=== PATIENT | female | born 1975 | race Caucasian/White ===

== ENCOUNTER 2019-06-27 15:03 | Emergency (ER) | payer MEDICAID, SELFPAY | END 2019-06-27 17:58 | disposition admitted as inpatient to this hospital (09) | LOC: ER 07-07 06:51 | PROVIDERS: Emergency Provider Emergency Medicine | DX: R45.851 Suicidal ideations (principal); F33.2 Major depressive disorder, recurrent severe without psychotic features; F17.210 Nicotine dependence, cigarettes, uncomplicated | CPT/HCPCS: 12345; 36415; 80053; 80306; 80307; 81025; 85025; 99284; 99285 ==

== ENCOUNTER 2019-06-27 15:03 | Inpatient (IN) | payer MEDICAID, SELFPAY ==
[2019-06-27 15:04] VITALS: BP 150/90; PULSE 77; RESP 16; TEMP 36.8; O2SAT 99; BMI 36.6
--- NOTE | 2019-06-27 15:16 | ED_ITS ---
HPI - Psych General: Chief Complaint: Psychiatric Symptoms Stated Complaint: SI/multiple c/o Time Seen by Provider: 06/27/19 15:16 History of Present Illness: HPI Narrative: Pt states she feels like killing herself over the past 2-3 days. She got into an argument today with someone and it made it much worse. She thought about jumping in front of a car or jumping off of a bridge. She was brought in by ems and they did an affidavit. She states she is not on any meds, was last in psych in March and they didnt put her on any meds per pt. complaint: suicidal ideation Onset (ago): day(s) (3) Duration: constant and getting worse History of same: Yes Relieving factors: none Exacerbating factors: other (argument today) Context: not taking psychiatric medications Associated psychiatric symptoms: depression and suicidal ideation Associated symptoms: Reports no associated symptoms, depression and suicidal ideation Treatments prior to arrival: none If self harm: admits thoughts of self harm and has plan Review of Systems General: Reports: 10 or more systems reviewed and unremarkable except in HPI and below Const: Denies: fever, chills, body aches, change in appetite, fatigue or diaphoresis ENMT: Denies: throat pain or dental pain Card: Reports: palpitations; Denies: chest pain, irregular heart rhythm, edema, syncope, pre-syncope, shortness of breath on exertion or shortness of breath when lying down Resp: Denies: shortness of breath or wheezing GI: Denies: abdominal pain, nausea, vomiting or diarrhea : Denies: difficulty urinating Skin/Breast: Denies: rash Neuro: Reports: headache; Denies: weakness in extremities, difficulty walking, confusion or behavioral changes Psych: Reports: anxiety, depression, mood swings, panic attacks and suicidal ideation PFS ED PFSH: Medical History (Updated 06/27/19 @ 16:59 by HARDIK Car) Anxiety and depression Bipolar 1 disorder Social History Smoking and tobacco status: current every day smoker Physical Exam Const: COMMON NORMALS: no apparent distress, oriented x3 and healthy appearing EXAM LIMITATIONS: no altered mental status GENERAL APPEARANCE: cooperative, comfortable, well kempt and well developed; not in distress and not lethargic ORIENTATION/CONSCIOUSNESS: Yes awake, Yes oriented to person and Yes oriented to place; not lethargic Neck/C-Spine: COMMON NORMALS: full ROM, supple and no meningeal signs Resp: COMMON NORMALS: normal respiratory effort, no use of accessory muscles and clear to auscultation bilaterally EFFORT & INSPECTION: Yes able to speak in complete sentences, Yes symmetric chest movement and No respiratory distress AUSCULTATION: clear to auscultation bilaterally Cardio: COMMON NORMALS: regular rate, regular rhythm and no murmurs RATE: regular rate RHYTHM: regular rhythm GI: COMMON NORMALS: normal to inspection, nondistended, normoactive bowel sounds, soft to palpation and non-tender INSPECTION: Yes normal to inspection PALPATION: Yes soft : COMMON NORMALS: Yes no CVA tenderness BLADDER/KIDNEY EXAM: Yes no CVA tenderness Back/Pelvis: COMMON NORMALS: no CVA tenderness Extremity: COMMON NORMALS: normal to inspection, full ROM and normal capillary refill Neuro: COMMON NORMALS: oriented x3 SENSORIUM/ORIENTATION: Yes oriented to person, Yes oriented to place and No lethargic MENINGEAL SIGNS: Yes no meningeal signs Psych: APPEARANCE: Yes well kempt MDM - Psych MDM Narrative: Medical decision making narrative: pt is acutey suicidal and depressed, Dr Gordillo states he will admit, Lab Data: Attestation: I reviewed the patient's lab results. Labs: Lab Results 06/27/19 06/27/19 06/27/19 Range/Units 16:08 16:08 16:10 WBC 5.0 (4.0-10.0) 10^3/ uL RBC 4.26 (4.1-5.3) 10^6/u L Hgb 12.1 (11.5-15.3) g/dL Hct 36.8 L (37.0-47.0) % MCV 86.4 (81-99) fL MCH 28.4 (28.0-34.0) pg MCHC 32.9 (30.0-36.0) g/dL RDW 13.5 (12.1-15.1) % Plt Count 210 (130-400) 10^3/c mm MPV 10.8 H (7.4-10.4) fL Neut % (Auto) 54.5 % Lymph % (Auto) 28.0 % Prentiss % (Auto) 15.1 % Eos % (Auto) 1.0 % Baso % (Auto) 1.2 % Neut # (Auto) 2.7 (1.8-7.7) 10^3/u L Lymph # (Auto) 1.4 (0.8-4.8) 10^3/u L Prentiss # (Auto) 0.8 (0.2-0.9) 10^3/u L Eos # (Auto) 0.1 (0.0-0.8) 10^3/u L Baso # (Auto) 0.1 (0.0-0.1) 10^3/u L Nucleated RBC % (a uto) 0 % Nucleated RBCs # 0.0 /100WBC Sodium 137 (136-145) mmol/L Potassium 4.3 (3.5-5.1) mmol/L Chloride 102 (98-107) mmol/L Carbon Dioxide 26 (22-29) mmol/L Anion Gap 13.3 (5-19) BUN 14 (6-20) mg/dL Creatinine 0.8 (0.5-0.9) mg/dL GFR Calculation 77.6 L (90-130) mL/min Glucose 95 (65-115) mg/dL Calculated Osmolal ity 280 L (285-295) mOsm/k g Calcium 9.2 (8.5-10.5) mg/dL Total Bilirubin 0.2 (0.15-1.2) mg/dL AST 16 (0-32) U/L ALT 7 (0-33) U/L Alkaline Phosphata se 78 (35-105) IU/L Total Protein 7.7 (6.6-8.7) g/dL Albumin 4.0 (3.5-5.2) g/dL Globulin 3.7 (1.3-4.6) g/dL HCG, Qual Negative (Negative) Salicylates 1.5 L (3-10) mg/dL Urine Opiates Scre en (Negative) ng/mL Acetaminophen < 5.0 L (10-30) ug/mL Ur Barbiturates Sc reen (Negative) ng/mL Ur Phencyclidine S crn (Negative) ng/mL Ur Amphetamines Sc reen (Negative) ng/mL U Benzodiazepines Scrn (Negative) ng/mL Urine Cocaine Scre en (Negative) ng/mL U Marijuana (THC) Screen (Negative) ng/mL Ethyl Alcohol < 10 (0-10) mg/dL 06/27/19 Range/Units 16:10 WBC (4.0-10.0) 10^3/ uL RBC (4.1-5.3) 10^6/u L Hgb (11.5-15.3) g/dL Hct (37.0-47.0) % MCV (81-99) fL MCH (28.0-34.0) pg MCHC (30.0-36.0) g/dL RDW (12.1-15.1) % Plt Count (130-400) 10^3/c mm MPV (7.4-10.4) fL Neut % (Auto) % Lymph % (Auto) % Prentiss % (Auto) % Eos % (Auto) % Baso % (Auto) % Neut # (Auto) (1.8-7.7) 10^3/u L Lymph # (Auto) (0.8-4.8) 10^3/u L Prentiss # (Auto) (0.2-0.9) 10^3/u L Eos # (Auto) (0.0-0.8) 10^3/u L Baso # (Auto) (0.0-0.1) 10^3/u L Nucleated RBC % (a uto) % Nucleated RBCs # /100WBC Sodium (136-145) mmol/L Potassium (3.5-5.1) mmol/L Chloride (98-107) mmol/L Carbon Dioxide (22-29) mmol/L Anion Gap (5-19) BUN (6-20) mg/dL Creatinine (0.5-0.9) mg/dL GFR Calculation (90-130) mL/min Glucose (65-115) mg/dL Calculated Osmolal ity (285-295) mOsm/k g Calcium (8.5-10.5) mg/dL Total Bilirubin (0.15-1.2) mg/dL AST (0-32) U/L ALT (0-33) U/L Alkaline Phosphata se (35-105) IU/L Total Protein (6.6-8.7) g/dL Albumin (3.5-5.2) g/dL Globulin (1.3-4.6) g/dL HCG, Qual (Negative) Salicylates (3-10) mg/dL Urine Opiates Scre en Negative (Negative) ng/mL Acetaminophen (10-30) ug/mL Ur Barbiturates Sc reen Negative (Negative) ng/mL Ur Phencyclidine S crn Negative (Negative) ng/mL Ur Amphetamines Sc reen Negative (Negative) ng/mL U Benzodiazepines Scrn Negative (Negative) ng/mL Urine Cocaine Scre en Negative (Negative) ng/mL U Marijuana (THC) Screen Positive H (Negative) ng/mL Ethyl Alcohol (0-10) mg/dL Discharge Plan Discharge Patient Disposition: Admitted As Inpatient Admit Provider: Hudson Rosales Clinical Impression: Suicidal ideation Depression Qualifiers: Depression Type: major depressive disorder Major depression recurrence: recurrent Active/Remission status: currently active Major depression episode severity: severe Psychotic features: without psychotic features Qualified Code(s): F33.2 - Major depressive disorder, recurrent severe without psychotic features Condition: Stable Coding Level of Care Code ED Contracting Executive for Irish Fwd Exam Detailed
[2019-06-27 16:17] LABS: Basophils # 0.1 10^3/uL (0.0-0.1); Basophils % 1.2 %; Eosinophils # 0.1 10^3/uL (0.0-0.8); Hematocrit 36.8 % (37.0-47.0); Hemoglobin 12.1 g/dL (11.5-15.3); Lymphocytes # 1.4 10^3/uL (0.8-4.8); Mean Corpuscular HGB Conc 32.9 g/dL (30.0-36.0); Mean Corpuscular Hemoglobin 28.4 pg (28.0-34.0); Mean Corpuscular Volume 86.4 fL (81-99); Mean Platelet Volume 10.8 fL (7.4-10.4); Monocytes # 0.8 10^3/uL (0.2-0.9); Monocytes % 15.1 %; Neutrophils # 2.7 10^3/uL (1.8-7.7); Neutrophils % 54.5 %; Nucleated Red Blood Cells % 0 %; Platelet Count 210 10^3/cmm (130-400); Red Blood Count 4.26 10^6/uL (4.1-5.3); Red Cell Distribution Width 13.5 % (12.1-15.1)
[2019-06-27 16:30] LABS: Amphetamines Screen Urine Negative (Negative); Barbiturates Screen Urine Negative (Negative); Benzodiazepines Screen Urine Negative (Negative); Cocaine Screen Urine Negative (Negative); Opiate Screen Urine Negative (Negative); PCP Screen Urine Negative (Negative); THC Screen Urine Positive (Negative)
[2019-06-27 16:32] LABS: HCG Qualitative Urine. Negative (Negative)
[2019-06-27 16:32] LABS: Alanine Aminotransferase 7 U/L (0-33); Alkaline Phosphatase 78 IU/L (35-105); Anion Gap 13.3 (5-19); Aspartate Amino Transferase 16 U/L (0-32); Blood Urea Nitrogen 14 mg/dL (6-20); Calcium 9.2 mg/dL (8.5-10.5); Carbon Dioxide 26 mmol/L (22-29); Chloride 102 mmol/L (98-107); Globulin 3.7 g/dL (1.3-4.6); Glomerular Filtration Rate 77.6 mL/min (90-130); Glucose 95 mg/dL (65-115); Osmolality Calculated 280 mOsm/kg (285-295); Potassium 4.3 mmol/L (3.5-5.1); Salicylate 1.5 mg/dL (3-10); Sodium 137 mmol/L (136-145); Total Bilirubin 0.2 mg/dL (0.15-1.2); Total Protein 7.7 g/dL (6.6-8.7)
[2019-06-27 16:42] LABS: Acetaminophen < 5.0 ug/mL (10-30); Alcohol Level < 10 mg/dL (0-10)
[2019-06-27 17:44] VITALS: BP 145/79; PULSE 70; RESP 17; O2SAT 98
[2019-06-27 18:26] VITALS: BP 154/98; PULSE 78; RESP 18; TEMP 37.1; O2SAT 97
--- NOTE | 2019-06-27 21:08 | PC.NURSE ---
pt refused stated no medication needed at this time when offered meds for pain or sleep.
[2019-06-27 22:00] VITALS: BP 129/89; PULSE 80; RESP 23; TEMP 36.9; O2SAT 99
--- NOTE | 2019-06-28 01:33 | PC.ADMIT ---
[address] [place] [address] Admission Note: The patient,Araseli Mueller,44 y/o, was given written information regarding hospital policies, unit procedures and contact persons. Patient's smoking status: current every day smoker. Vital Signs - 8 hr 06/27/19 17:44 06/27/19 18:26 06/27/19 22:00 Temperature 98.7 F 98.4 F Pulse Rate 70 78 80 Respiratory Rate 17 18 23 H Blood Pressure 145/79 154/98 129/89 Pulse Oximetry 98 97 99 44 y/o WF admitted from the ED. Pt states she feels like killing herself over the past 2-3 days. She got into an argument today with someone and it made it much worse. She thought about jumping in front of a car or jumping off of a bridge. She was brought in by EMS and they did an affidavit. She states she is not on any meds, was last in psych in March and they didn't put her on any meds per pt. BAL/DOA negative. Patient reports homeless. Cooperative with admission.
[2019-06-28 06:00] VITALS: BP 127/80; PULSE 68; RESP 20; TEMP 37; O2SAT 98
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
[2019-06-28 14:00] VITALS: BP 132/99; PULSE 78; RESP 18; TEMP 37.2; O2SAT 98
[2019-06-28] MEDS: trazodone 50 mg Tablet PO (20:32)
--- NOTE | 2019-06-28 20:32 | PC.NURSE ---
prn trazodone given at this time per pt request.
[2019-06-28 20:51] VITALS: BP 142/106; PULSE 69; RESP 24; TEMP 37.1; O2SAT 98
[2019-06-29 06:00] VITALS: BP 138/93; PULSE 70; RESP 16; TEMP 36.7; O2SAT 98
[2019-06-29] MEDS: fluoxetine 20 mg Capsule PO (08:25)
[2019-06-29 14:00] VITALS: BP 150/96; PULSE 79; RESP 20; TEMP 37.1; O2SAT 98
[2019-06-29] MEDS: trazodone 50 mg Tablet PO (20:36)
[2019-06-29 21:09] VITALS: BP 142/95; PULSE 80; RESP 17; TEMP 36.4; O2SAT 93
--- NOTE | 2019-06-29 22:04 | PM.NPN ---
Subjective NPU Subjective: Interval history: Patient presents today reporting that she feels a lot better with the initiation of the medication. She reports that she has been working with the social workers to try to figure out if there are some options available with sober living facilities. We discussed the fact that during this COVID crisis that getting placement is fairly challenging, but she is working with the treatment team to see what options exist. We again discussed holding on the consideration of an antipsychotic/mood stabilizer to see if her symptoms resolve, from a standpoint of psychosis, just with the SSRI. Mental Status Exam MSE Comments: This is an obese, white female, with adequate dress, grooming, and eye contact. No abnormal movements, except for mild psychomotor retardation. Cooperative with exam in no acute distress. Speech was decreased rate and volume, with some difficulty with articulation, at times almost appearing like she has had an anti-psychotic, like Haldol, where she is almost having difficulty with her tongue, but that may be something she has dealt with throughout her life and related to her likely intellectual disability. Mood described as a little better; affect congruent. Thought process, organized. Thought content: patient denied any suicidal or homicidal ideation, there were no delusions reported or noted, patient denied any auditory or visual hallucinations. Attention, concentration, and memory appeared intact but were not formally tested. She is alert and oriented times three. Insight and judgment are limited but improving. Vitals/I&O/Wt Last Vital Signs Temp 97.5 F L 06/29/19 21:09 Pulse 80 06/29/19 21:09 Resp 17 06/29/19 21:09 BP 142/95 06/29/19 21:09 Pulse Ox 93 06/29/19 21:09 Data NPU : 06/27/19 16:08 06/27/19 16:08 A&P Additional A&P Information (1) Major depressive disorder: This is a 44 year old, white female, with history of psychosis and multiple hospitalizations, trauma history and likely intellectual disability, who presents reporting that she has had a resumption of symptoms including hallucinations in the stressful move from [place] to [place]. Continue current medication except: Restart Prozac 20 mg po qam and Buspar 15 mg po bid. Will consider the addition of maybe Abilify or Invega in the event that she does not have a resolution of the psychosis with the Prozac as she has reportedly had in the past. Encourage individual, group, and milieu therapy. Continue 1 15-minute checks for safety. Will encourage outpatient sober living treatment at the highest level of care to which she is willing to commit. (2) Borderline intellectual functioning: Involuntary Hold Information 96 Hour Hold: 96 Hour Involuntary Admission: No Attestations NPU Medical Necessity Statement*: Inpatient hospitalization is medically necessary and the clinically appropriate intervention at this time. We will monitor medications and titrate and adjust as indicated. She will be in the hospital for over two midnights. Likely length of stay two to four days. Coding Level of Care Code Acute Hand Blocker for Irish Hotl
[2019-06-30 06:00] VITALS: BP 156/93; PULSE 70; RESP 16; TEMP 36.6; O2SAT 97
[2019-06-30] MEDS: fluoxetine 20 mg Capsule PO (08:22)
[2019-06-30 14:00] VITALS: BP 141/98; PULSE 79; RESP 20; TEMP 37.2; O2SAT 94
--- NOTE | 2019-06-30 15:04 | PM.NPN ---
Subjective NPU Subjective: Interval history: Araseli presented today reporting that she is feeling a little better. She is feeling optimistic about the fact that she and the social work team may have found the only real option for her which is possibly in [place] and related to a penitentiary option. She reports that she is doing well with the medication and optimistic about hopefully getting back on her feet and stabilized with her mental health. Mental Status Exam MSE Comments: This is an obese, white female, with adequate dress, grooming, and eye contact. No abnormal movements, except for mild psychomotor retardation. Cooperative with exam in no acute distress. Speech was decreased rate and volume, but with some improvement and mild tongue rolling almost EPS appearing. Mood described as better; affect congruent.]Thought process, organized. Thought content: patient denied any suicidal or homicidal ideation, there were no delusions reported or noted, patient denied any auditory or visual hallucinations. Attention, concentration, and memory appeared intact but were not formally tested. She is alert and oriented times three. Insight and judgment are limited but improving. Vitals/I&O/Wt Last Vital Signs Temp 98.9 F 06/30/19 14:00 Pulse 79 06/30/19 14:00 Resp 20 H 06/30/19 14:00 BP 141/98 06/30/19 14:00 Pulse Ox 94 06/30/19 14:00 Data NPU : 06/27/19 16:08 06/27/19 16:08 A&P Additional A&P Information (1) Major depressive disorder: This is a 44 year old, white female, with history of psychosis and multiple hospitalizations, trauma history and likely intellectual disability, who presents reporting that she has had a resumption of symptoms including hallucinations in the stressful move from [place] to [place]. Continue current medication except: Will consider the addition of maybe Abilify or Invega in the event that she does not have a resolution of the psychosis with the Prozac as she has reportedly had in the past. Encourage individual, group, and milieu therapy. Continue 1 15-minute checks for safety. Will encourage outpatient sober living treatment at the highest level of care to which she is willing to commit. (2) Borderline intellectual functioning: Involuntary Hold Information 96 Hour Hold: 96 Hour Involuntary Admission: No Attestations NPU Medical Necessity Statement*: Inpatient hospitalization is medically necessary and the clinically appropriate intervention at this time. We will monitor medications and titrate and adjust as indicated. Likely length of stay two to four days. Coding Level of Care Code Acute Auto Mechanic Apprentice for Irish Holt
[2019-06-30] MEDS: trazodone 50 mg Tablet PO (20:46)
[2019-06-30 21:56] VITALS: BP 143/103; PULSE 68; RESP 18; TEMP 36.6; O2SAT 97
[2019-07-01 06:00] VITALS: BP 148/89; PULSE 70; RESP 18; TEMP 36.8; O2SAT 97
[2019-07-01] MEDS: fluoxetine 20 mg Capsule PO (08:30)
--- NOTE | 2019-07-01 11:00 | P.PN_ITS ---
Subjective NPU Subjective: Interval history: Araseli presents today reporting that she is doing fairly well with the medication, reporting her sleep is improving and identifying that she is on board with the treatment plan that we, along with her, have come up with, which will involve her discharging very early in the morning on Thursday to make sure she has the best option to get into the senior care t hat we have identified for her. Mental Status Exam MSE Comments: This is an obese, white female, with adequate dress, grooming, and eye contact. No abnormal movements. Cooperative with exam in no acute distress. Speech was normal rate and volume with some articulation issues. Mood described as a little better; affect congruent. Thought process, organized. Thought content: patient denied any suicidal or homicidal ideation, there were no delusions reported or noted, patient denied any auditory or visual hallucinations. Attention, concentration, and memory appeared intact but were not formally tested. Alert and oriented times three. Insight and judgment are improving and intellectual ability likely impaired. Vitals/I&O/Wt Last Vital Signs Temp 98.7 F 07/01/19 19:33 Pulse 75 07/01/19 19:33 Resp 17 07/01/19 19:33 BP 139/99 07/01/19 19:33 Pulse Ox 97 07/01/19 19:33 Data NPU : 06/27/19 16:08 06/27/19 16:08 A&P Additional A&P Information (1) Major depressive disorder: This is a 44 year old, white female, with history of psychosis and multiple hospitalizations, trauma history and likely intellectual disability, w ho presents reporting that she has had a resumption of symptoms including hallucinations in the stressful move from [place] to [place]. Continue current medication except: Will not consider the addition of maybe Abilify or Invega at this point as the likelihood of wesly psychosis as part of her condition is unlikely Encourage individual, group, and milieu therapy. Continue 1 15-minute checks for safety. Will discharge on thursday early and so will get medications to the unit by tomorrow. (2) Borderline intellectual functioning: Involuntary Hold Information 96 Hour Hold: 96 Hour Involuntary Admission: No Attestations NPU Medical Necessity Statement*: Inpatient hospitalization is medically necessary and the clinically appropriate intervention at this time. We will monitor medications and titrate and adjust as indicated. Likely length of stay two to four days. Tentative discharge Thursday. Coding Level of Care Code Acute Garment Alteration Examiner for Irish Holt
[2019-07-01 14:00] VITALS: BP 143/99; PULSE 78; RESP 20; TEMP 36.9; O2SAT 97
[2019-07-01 19:33] VITALS: BP 139/99; PULSE 75; RESP 17; TEMP 37.1; O2SAT 97
[2019-07-01] MEDS: trazodone 50 mg Tablet PO (20:45)
--- NOTE | 2019-07-01 20:45 | PC.NURSE ---
PRN TRAZODONE PT REQUESTING SLEEP AID. TRAZODONE 50MG PO ADMINISTERED. WILL MONITOR FOR MEDICATION EFFECTIVENESS.
[2019-07-02 06:00] VITALS: BP 131/88; PULSE 66; RESP 17; TEMP 36.9; O2SAT 97
[2019-07-02] MEDS: fluoxetine 20 mg Capsule PO (08:08)
--- NOTE | 2019-07-02 11:41 | PM.NPN ---
Subjective NPU Subjective: Interval history: The patient presents today reporting that she is feeling significant improvement. We had a discussion about the psychotic symptoms that she had in the past. She reports that the BuSpar and the Prozac have eliminated those experiences. We discussed the plan that we have for her to be discharged to [facility] in [place], early Thursday around the 5:30 a.m. range. We discussed that we went over to the [facility] pharmacy to get her medication, so that will not be an issue Thursday. She reports she is eating and sleeping much better. Mental Status Exam MSE Comments: This is an obese, white female, with adequate dress, grooming, and eye contact. No abnormal movements. Cooperative with exam in no acute distress. Speech was more normal rate and volume, with some clear articulation issues consistent with having almost a thick or heavy tongue. Mood described as pretty good; affect congruent. Thought process, organized. Thought content: patient denied any suicidal or homicidal ideation, there were no delusions reported or noted, patient denied any auditory or visual hallucinations. Attention, concentration, and memory appeared intact but were not formally tested. She is alert and oriented times three. Insight and judgment are improving. Vitals/I&O/Wt Last Vital Signs Temp 98.5 F 07/02/19 06:00 Pulse 66 07/02/19 06:00 Resp 17 07/02/19 06:00 BP 131/88 07/02/19 06:00 Pulse Ox 97 07/02/19 06:00 Data NPU : 06/27/19 16:08 06/27/19 16:08 A&P Additional A&P Information (1) Major depressive disorder: This is a 44 year old, white female, with history of psychosis and multiple hospitalizations, trauma history and likely intellectual disability, who presents reporting that she has had a resumption of symptoms including hallucinations in the stressful move from [place] to [place]. Continue current medication except: Encourage individual, group, and milieu therapy. Continue 15-minute checks for safety. Will discharge on thursday early and so will get medications to the unit by tomorrow. (2) Borderline intellectual functioning: Involuntary Hold Information 96 Hour Hold: 96 Hour Involuntary Admission: No Attestations NPU Medical Necessity Statement*: Inpatient hospitalization is medically necessary and the clinically appropriate intervention at this time. We will monitor medications and titrate and adjust as indicated. Likely length of stay 1 to three days. Tentative discharge Thursday. Coding Level of Care Code Acute Head Piece Assembler for Irish Holt
[2019-07-02 13:25] VITALS: BP 130/58; PULSE 8; RESP 18; TEMP 36.8; O2SAT 97
[2019-07-02 20:19] VITALS: BP 142/86; PULSE 68; RESP 17; TEMP 37; O2SAT 97
[2019-07-02] MEDS: trazodone 50 mg Tablet PO (20:48)
[2019-07-03 06:00] VITALS: BP 128/87; PULSE 66; RESP 16; TEMP 36.9; O2SAT 97
[2019-07-03] MEDS: fluoxetine 20 mg Capsule PO (09:02)
[2019-07-03 13:07] VITALS: BP 120/78; PULSE 70; RESP 17; TEMP 36.6; O2SAT 97
--- NOTE | 2019-07-03 14:07 | PM.NPN ---
Subjective NPU Subjective: Interval history: Araseli presents today reporting that she is feeling optimistic about tomorrow. She is somewhat unsure of exactly what the program is, but she knows it is an opportunity that she needed. She was inquiring about her medication and which ones she was getting and questioned about when she would be leaving and things of that nature. I explained to her that she would be leaving fairly early in the morning, but that everything would be ready. She was very grateful for the opportunity for the help she received and reported that she is feeling significantly better. Mental Status Exam MSE Comments: This is an obese, white female, with adequate dress, grooming, and eye contact. No abnormal movements. Cooperative with exam in no acute distress. Speech was normal rate and volume with some mild articulation issues. Mood described as pretty good; affect congruent. Thought process, organized. Thought content: patient denied any suicidal or homicidal ideation, there were no delusions reported or noted, patient denied any auditory or visual hallucinations. Attention, concentration, and memory appeared intact but were not formally tested. Alert and oriented times three. Insight and judgment are limited but improving. Vitals/I&O/Wt Last Vital Signs Temp 98.5 F 07/03/19 06:00 Pulse 66 07/03/19 06:00 Resp 16 07/03/19 06:00 BP 128/87 07/03/19 06:00 Pulse Ox 97 07/03/19 06:00 Weight last 48 hrs Weight 105.347 kg Data NPU : 06/27/19 16:08 06/27/19 16:08 A&P Additional A&P Information (1) Major depressive disorder: This is a 44 year old, white female, with history of psychosis and multiple hospitalizations, trauma history and likely intellectual disability, who presents reporting that she has had a resumption of symptoms including hallucinations in the stressful move from [place] to [place]. Continue current medication except: Encourage individual, group, and milieu therapy. Continue 15-minute checks for safety. Will discharge on thursday early. (2) Borderline intellectual functioning: Involuntary Hold Information 96 Hour Hold: 96 Hour Involuntary Admission: No Attestations NPU Medical Necessity Statement*: Inpatient hospitalization is medically necessary and the clinically appropriate intervention at this time. We will monitor medications and titrate and adjust as indicated. Tentative discharge Thursday. Coding Level of Care Code Acute Front Office Secretary for Irish Holt
[2019-07-03 20:40] VITALS: BP 132/94; PULSE 74; RESP 20; TEMP 37; O2SAT 98
[2019-07-03] MEDS: trazodone 50 mg Tablet PO (21:07)
[2019-07-04 06:00] VITALS: BP 130/83; PULSE 66; RESP 22; TEMP 36.7; O2SAT 98
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
[2019-07-04 07:12] VITALS: BP 130/83; PULSE 66; RESP 22; TEMP 36.7; O2SAT 98
== END 2019-07-04 08:10 | disposition home or self-care (01) | DRG 885 ==
LOC: ER 16:55 → NP 17:18
PROVIDERS: Admitting Provider Psychiatry & Neurology Psychiatry; Emergency Provider Emergency Medicine; Visit Provider Psychiatry & Neurology Psychiatry
DX: F33.3 Major depressive disorder, recurrent, severe with psychotic symptoms (principal); R45.851 Suicidal ideations; R41.83 Borderline intellectual functioning; F41.9 Anxiety disorder, unspecified; F17.210 Nicotine dependence, cigarettes, uncomplicated
CPT/HCPCS: 12345; 36415; 80053; 80306; 80307; 81025; 85025; 99284

== ENCOUNTER 2019-09-26 12:52 | Emergency (ER) | payer MEDICAID, SELFPAY ==
--- NOTE | 2019-09-26 12:16 | W.ED.HA ---
HPI - Headache General: Chief Complaint: Headache Stated Complaint: HEADACHE History of Present Illness: HPI Narrative: 44-year-old female comes in complaining of a headache. Patient planes of back pain and headache also having some side pain she denies dysuria urgency or frequency no history of kidney stones. She has been taking some Tylenol for it with no relief. She states she has been taking p.o. and fluids well in fact she has several bags of groceries in the exam room which she was making herself a meal from we asked her to stop because we are doing her work-up but she said she is very hungry and wanted to continue eating. She also complaining of a severe headache. She has had no vomiting or diarrhea without no head trauma. With her back pain she denies any radicular symptoms denies any dysuria urgency or frequency. MD elicited complaint: headache Associated symptoms: Deny chest pain, fever(s), malaise, nausea, rash or vomiting Review of Systems Const: Denies: fever(s), chills, body aches, change in appetite, fatigue or malaise ENMT: Denies: throat pain, ear or mastoid pain, nasal discharge or nasal congestion Card: Denies: chest pain, edema, dyspnea on exertion or orthopnea Resp: Denies: dyspnea, productive cough or non-productive cough GI: Denies: abdominal pain, nausea, vomiting, hematemesis, coffee ground emesis, diarrhea, constipation, bloating, hematochezia or melena : Reports: flank pain; Denies: difficulty voiding, dysuria, urinary frequency or urinary urgency Skin/Breast: Denies: rash or pruritus Neuro: Reports: headache(s) PFS ED PFSH: Medical History (Updated 09/26/19 @ 14:34 by Nader Arevalo DO) Anxiety and depression Asthma Bipolar 1 disorder Surgical History (Updated 09/26/19 @ 14:35 by Nader Arevalo DO) H/O: hysterectomy Previous section Tubal ligation status Social History Smoking and tobacco status: current every day smoker Physical Exam Const: COMMON NORMALS: no acute distress GENERAL APPEARANCE: cooperative and comfortable ORIENTATION/CONSCIOUSNESS: Yes awake, Yes oriented to person, Yes oriented to place and Yes oriented to time HENMT: COMMON NORMALS: normocephalic, atraumatic, hearing grossly normal bilaterally, external ears normal, EAC's normal, TM's normal bilaterally, Normal nasal mucous membranes and turbinates present, moist oral mucous membranes and oropharynx normal HEAD & SCALP: normocephalic and atraumatic NOSE: Normal nasal mucous membranes and turbinates present EXTERNAL EAR: Yes external ears normal EXTERNAL AUDITORY CANAL: EAC's normal TYMPANIC MEMBRANE: TM's normal bilaterally Eye: COMMON NORMALS: Equal, round and reactive pupils present, EOMs intact bilaterally, conjunctivae normal and no scleral icterus CONJUNCTIVA: Yes conjunctivae normal PUPIL: Yes Equal, round and reactive pupils present Neck/C-Spine: COMMON NORMALS: full ROM, no lymphadenopathy, supple and no JVD Lymph: LYMPHATIC: no lymphadenopathy noted and no lymphedema noted Resp: COMMON NORMALS: normal respiratory effort, No retractions, No use of accessory muscles and clear to auscultation bilaterally AUSCULTATION: clear to auscultation bilaterally Cardio: COMMON NORMALS: no JVD, regular rate, regular rhythm and No murmurs present (Cardio) RATE: regular rate RHYTHM: regular rhythm GI: COMMON NORMALS: Soft to palpation and No hepatosplenomegaly present AUSCULTATION: Yes normoactive bowel sounds PALPATION: Yes Soft to palpation, No Tenderness to palpation present (GI), No Guarding due to palpation present (GI) and Yes No hepatosplenomegaly present Extremity: COMMON NORMALS: normal to inspection, capillary refill normal, no clubbing, cyanosis or edema, no calf tenderness and no pedal edema Neuro: SENSORIUM/ORIENTATION: Yes oriented to person, Yes oriented to place and Yes oriented to time Skin: COMMON NORMALS: no rashes or lesions noted GENERAL SKIN EXAM: no rashes or lesions noted Course Vital Signs: Vital signs: Vital Signs Temperature 97.8 F 09/26/19 12:19 Pulse Rate 70 09/26/19 13:30 Respiratory Rate 16 09/26/19 13:30 Blood Pressure 181/100 09/26/19 13:30 Pulse Oximetry 97 09/26/19 13:30 MDM - Headache MDM Narrative: Medical decision making narrative: Offered patient several medications for her headache and her back pain she refused she refuses anything but orals and ultimately asked to be discharged so she could get a ride home with logistic care back to [place]. Recommended that we do further evaluation given her multiple complaints she Declines discussed with her that this could leave things undiagnosed that may be bad for her health and even make her sicker she expressed understanding this wishes to leave AGAINST MEDICAL ADVICE anyway. Lab Data: Labs: Lab Results 09/26/19 09/26/19 09/26/19 Range/Units 12:29 12:29 12:50 WBC 4.4 (4.0-10.0) 10^3/ uL RBC 4.28 (4.1-5.3) 10^6/u L Hgb 11.8 (11.5-15.3) g/dL Hct 36.5 L (37.0-47.0) % MCV 85.3 (81-99) fL MCH 27.6 L (28.0-34.0) pg MCHC 32.3 (30.0-36.0) g/dL RDW 13.2 (12.1-15.1) % Plt Count 197 (130-400) 10^3/c mm MPV 10.4 (7.4-10.4) fL Neut % (Auto) 50.9 % Lymph % (Auto) 34.9 % [place] % (Auto) 10.3 % Eos % (Auto) 2.3 % Baso % (Auto) 1.1 % Neut # (Auto) 2.2 (1.8-7.7) 10^3/u L Lymph # (Auto) 1.5 (0.8-4.8) 10^3/u L [place] # (Auto) 0.5 (0.2-0.9) 10^3/u L Eos # (Auto) 0.1 (0.0-0.8) 10^3/u L Baso # (Auto) 0.1 (0.0-0.1) 10^3/u L Nucleated RBC % (a uto) 0 % Nucleated RBCs # 0.0 /100WBC Sodium 139 (136-145) mmol/L Potassium 4.0 (3.5-5.1) mmol/L Chloride 103 (98-107) mmol/L Carbon Dioxide 28 (22-29) mmol/L Anion Gap 12.0 (5-19) BUN 14 (6-20) mg/dL Creatinine 0.8 (0.5-0.9) mg/dL GFR Calculation 77.6 L (90-130) mL/min Glucose 91 (65-115) mg/dL Calculated Osmolal ity 284 L (285-295) mOsm/k g Calcium 9.4 (8.5-10.5) mg/dL Total Bilirubin 0.2 (0.15-1.2) mg/dL AST 23 (0-32) U/L ALT 15 (0-33) U/L Alkaline Phosphata se 72 (35-105) IU/L Total Protein 6.9 (6.6-8.7) g/dL Albumin 4.4 (3.5-5.2) g/dL Globulin 2.5 (1.3-4.6) g/dL Urine Color Yellow (Yellow) Urine Appearance Hazy A (CLEAR) Urine pH 6.0 (5-7) Ur Specific Gravit y 1.015 (1.005-1.030) Urine Protein Neg (Negative) Urine Glucose (UA) Norm (Normal) Urine Ketones Negative (Negative) Urine Blood Neg (Negative) Urine Nitrate Positive H (Negative) Urine Bilirubin Neg (NEGATIVE) Urine Urobilinogen Norm (Negative) mg/dL Ur Leukocyte Fern [place] 1+ H (Negative) Urine RBC None (0-2) /hpf Urine WBC 15-25 H (0-5) /hpf Ur Squamous Epith Cells 5-10 H (0-5) Amorphous Sediment Not Reportable Urine Bacteria 3+ H (NONE) Urine Mucus N Discharge Plan Discharge Patient Disposition: Left Against Medical Advice Clinical Impression: Left against medical advice, Tension headache, HTN (hypertension) Condition: Stable Prescriptions: New lisinopril 10 mg tablet 10 mg PO DAILY Qty: 30 RF: 0 amlodipine 10 mg tablet 10 mg PO DAILY Qty: 30 RF: 0 No Action fluoxetine 20 mg Capsule 20 mg PO DAILY 30 Days Qty: 30 RF: 1 buspirone 15 mg Tablet 15 mg PO BID 30 Days Qty: 60 RF: 1 Discharge Orders: Discharge Order (Routine); Ordered 09/26/19 Ordered By: Nader Arevalo Activity Restrictions/Additional Instructions: You have chosen to leave before we complete evaluation and treatment. Recommend you follow-up with your primary care doctor soon as possible to further evaluate for your blood pressure. We did give you 2 blood pressure medicines to try to control your blood pressure in the interim you are welcome to return at any time. Since you have left without being fully evaluated we cannot be certain that you may not have other significant medical issues ongoing that may be severe and/or potentially life-threatening. Discharge Date/Time: 09/26/19 13:32 Coding Level of Care Code ED [employer] for [employer]
[2019-09-26 12:19] VITALS: BP 170/108; PULSE 82; RESP 14; TEMP 36.6; O2SAT 99; BMI 36.6
[2019-09-26 12:36] LABS: Basophils # 0.1 10^3/uL (0.0-0.1); Basophils % 1.1 %; Eosinophils # 0.1 10^3/uL (0.0-0.8); Eosinophils % 2.3 %; Hematocrit 36.5 % (37.0-47.0); Hemoglobin 11.8 g/dL (11.5-15.3); Lymphocytes # 1.5 10^3/uL (0.8-4.8); Lymphocytes % 34.9 %; Mean Corpuscular HGB Conc 32.3 g/dL (30.0-36.0); Mean Corpuscular Hemoglobin 27.6 pg (28.0-34.0); Mean Corpuscular Volume 85.3 fL (81-99); Mean Platelet Volume 10.4 fL (7.4-10.4); Monocytes # 0.5 10^3/uL (0.2-0.9); Monocytes % 10.3 %; Neutrophils # 2.2 10^3/uL (1.8-7.7); Neutrophils % 50.9 %; Nucleated Red Blood Cells % 0 %; Platelet Count 197 10^3/cmm (130-400); Red Blood Count 4.28 10^6/uL (4.1-5.3); Red Cell Distribution Width 13.2 % (12.1-15.1); White Blood Count 4.4 10^3/uL (4.0-10.0)
[2019-09-26 12:53] LABS: Alanine Aminotransferase 15 U/L (0-33); Albumin Level 4.4 g/dL (3.5-5.2); Alkaline Phosphatase 72 IU/L (35-105); Aspartate Amino Transferase 23 U/L (0-32); Blood Urea Nitrogen 14 mg/dL (6-20); Calcium 9.4 mg/dL (8.5-10.5); Carbon Dioxide 28 mmol/L (22-29); Chloride 103 mmol/L (98-107); Globulin 2.5 g/dL (1.3-4.6); Glomerular Filtration Rate 77.6 mL/min (90-130); Glucose 91 mg/dL (65-115); Osmolality Calculated 284 mOsm/kg (285-295); Sodium 139 mmol/L (136-145); Total Bilirubin 0.2 mg/dL (0.15-1.2); Total Protein 6.9 g/dL (6.6-8.7)
[2019-09-26] MEDS: amlodipine 5 mg Tablet PO (13:10)
[2019-09-26] MEDS: acetaminophen 500 mg Tablet 1000 MG PO (13:15)
--- NOTE | 2019-09-26 13:19 | PC.NURSE ---
Patient found making a sandwich. She has refused IV medications. She wishes to leave immediately. EMD aware. [id number]7433745214162792090942336299897 [id number]70657260743399546834889250672021988314113795454097218427483874817800940719687855090874127215292240883682070003961443315056473592771435405947679516630600212501354968252430259503793266020580926 3953280699764010067672340773307536461489225287263530576157483553937012801804887680983148848557138918513510425306215448013267713474055159251054918978669214283101092326230815595126586048070226530719625108427561280202342766995388174095111918178054174196 4463041732037202865797518666412864933875192877175106186394436378168925182853198063751953489398284303277162498407348160415262304689738337205412393772434960771436846423200449478904718897535277221238028008083020018082554711976614739223023728191721672177 4313079446661930015756540591418734452591889414882426149268457405229211186776147002717642392748120486465444665471951997837466395275330616784759992019788893405457864038308571464036221505013762398236897332016970833316516666292948662861011000212941646493 7287142368667167957708844198278975421948838181646595404517840811554209040908521350382915581015883712118856165450613582808873249817979333322259508950511339841126828096000493338696460896465991459656438900961232714481225776164821525927547990610716650791 2669098783574603648404342077010744488337530704806565824101394191641424344396406133668245683196723235229699297939504895313940022185351744686821974412143164680534963953709030172289068771167867059353889091230668328432550099721899867469623727951598517988 8317697367383514832589136888417010284462471188069801033249620118482267636234377619918899782364872746397199174434799386219156495165921883376201502389503598857315276309939490092113147942671688022656271086285213652783619164675510153530354432557125050100 3421041003007668369949400290294147824835045735113303151903577562670264640748300004204082632405332022117677239167858324991983345074510674880474351089063504317299001774318191569143487492450194434562113211308819309081105175022775596614883996764129625015 1340227601865450758821996458586009443992483223829420664611689374718253693689816345086066471658413420292230254277323483793709078040336590127186662399863050310708768916324373636575520449574736330792900330720599437928502513959737081557549442273362770181 2278751890765985830200281481588382482564700412605542870698413078162272337508005958816867711577007640336654007952470808725962018346009195915059141619700779624362133919274260138649877018191702924481892404417676690901532060392876785520235783388021458441 6311511440003930090524957444348290891914368841990043669448814291339865282663526124333188095915277578845854580388583523438589672203067800099910299389118970216976194512266009375661568292426844089133635486617734500200945127529403983245027950282750873115 1881138717958115461367061396550095527612282558556428191763060284281165687491243114563479034464539747465861259745901176453701282214144505251439014417631883669192397613694768364622272627681328717663097506072822792290751250733168348908526024004622704609 2540072401162625972808911250876520104465669421098942124952828805736567544899295961389969720982527087148293318501781623017524320407371359677942433858640584769523372310620977437184937876202837730738621801429235324600997184806200371324493385447448899436 0881025136753692334413533481673379450533925233069862339763361716656872664254593431002612433224276207572714154143569043331753229697461828489529047952139702487658402640468708499670031836729231147705136853618251498922496891179684934000853904245747254380 2404615168869861409056622260793421161092868586455990150878998491649203934446315965409049283458922932424016040681338713662069383889987926514788314342731365047242422561663794638238668594065815701165075110382563173117579254600671601525067873236431945590 [id number]
[2019-09-26 13:30] VITALS: BP 181/100; PULSE 70; RESP 16; O2SAT 97
[2019-09-26 13:43] LABS: Add Urine Culture? Yes; Add Urine Microscopic? YES; Bacteria Urine 3+; Bilirubin Urine Neg (NEGATIVE); Blood Urine Neg (Negative); Glucose Urine UA Norm (Normal); Ketones Urine Negative (Negative); Leukocyte Esterase Urine 1+ (Negative); Mucus Urine N; Nitrate Urine Positive (Negative); Protein Urine Neg (Negative); Specific Gravity, Urine 1.015 (1.005-1.030); Urine Appearance Hazy (CLEAR); Urine Color Yellow (Yellow); Urobilinogen Urine Norm (Negative); WBC Urine 15-25 /hpf (0-5)
--- NOTE | 2019-09-26 16:45 | PC.NURSE ---
Patient is still in the waiting room. Despite being told that she was not a candidate for [facility], she asked registration to call for her a ride. [facility] contacted me and requested details about her AMA status. They reviewed her case and determined that she is not a candidate. I advised the patient about their decision. I asked the patient how she intended on returning to [place] today before becoming ill. She stated ?I planned on calling [facility] ?.
== END 2019-09-26 13:32 | disposition left against medical advice (07) ==
LOC: ER 13:38
PROVIDERS: Emergency Provider Family Medicine
DX: G44.209 Tension-type headache, unspecified, not intractable (principal); I10 Essential (primary) hypertension; F17.210 Nicotine dependence, cigarettes, uncomplicated; Z53.21 Procedure and treatment not carried out due to patient leaving prior to being seen by health care provider
CPT/HCPCS: 12345; 36415; 80053; 81001; 81003; 85025; 87077; 87086; 87186; 96365; 96375; 99283; 99284

== ENCOUNTER 2020-04-24 10:59 | Inpatient (IN) | payer MEDICAID, SELFPAY ==
[2020-04-24 10:59] VITALS: BP 153/102; PULSE 92; RESP 18; TEMP 36.9; O2SAT 99; BMI 33.3
--- NOTE | 2020-04-24 11:21 | W.ED.PSYCH ---
HPI - Psych General: Chief Complaint: Psychiatric Symptoms Stated Complaint: PSYCH EVAL, NECK PAIN Time Seen by Provider: 04/24/20 11:01 Source: patient Mode of arrival: EMS Limitations: no limitations History of Present Illness: HPI Narrative: Patient is a 45-year-old female who presents to ED today via EMS for psychiatric evaluation. Patient tells me she called the ambulance after having an argument with her mother. She tells me she is currently residing with her mother. She tells me that she is stressed out to the max . She states she is experiencing visual and auditory hallucinations. She tells me she has PTSD related to when she was homeless. She states she still has the homeless mentality reporting that she stayed in several rough areas for years while in [place]. She denies SI/HI. She does have a previous suicide attempt 3 years ago when she tried to slit her wrists. She reports methamphetamine use 2 months ago. She tells me she has diagnoses of anxiety, depression, bipolar, schizophrenia. She currently does not know the medications that she takes but states they are prescribed by Dr. Fierro. complaint: feels depressed Onset (ago): day(s) Duration: constant History of same: Yes Context: significant life stressor Associated psychiatric symptoms: depression, auditory hallucinations and visual hallucinations Associated symptoms: Reports auditory hallucinations, visual hallucinations and depression; Deny homicidal ideation or suicidal ideation Treatments prior to arrival: none Review of Systems Const: Denies: fever(s) or chills Card: Denies: chest pain, palpitations, lightheadedness or syncope Resp: Denies: dyspnea GI: Denies: abdominal pain, nausea, vomiting or diarrhea Skin/Breast: Denies: rash Neuro: Denies: headache(s) Psych: Reports: anxiety, depression, visual hallucinations and auditory hallucinations; Denies: suicidal ideation or homicidal ideation [facility] ED PFSH: Medical History Anxiety and depression Asthma Bipolar 1 disorder Essential hypertension Surgical History H/O: hysterectomy Previous section Tubal ligation status Social History Smoking and tobacco status: current every day smoker Physical Exam Const: COMMON NORMALS: no acute distress, patient oriented x3, no limitations, alert and well nourished GENERAL APPEARANCE: cooperative ORIENTATION/CONSCIOUSNESS: Yes awake, Yes oriented to person, Yes oriented to place and Yes oriented to time Resp: COMMON NORMALS: normal respiratory effort and clear to auscultation bilaterally AUSCULTATION: clear to auscultation bilaterally Cardio: COMMON NORMALS: regular rate and regular rhythm RATE: regular rate RHYTHM: regular rhythm Neuro: FUNMILAYO COMA SCALE: document GCS findings Funmilayo coma scale eye opening: Spontaneous [place]o coma scale verbal response: Orientated [place] coma scale motor response: [place] commands [place] coma scale total score: 15 COMMON NORMALS: patient oriented x3 SENSORIUM/ORIENTATION: Yes alert, Yes oriented to person, Yes oriented to place and Yes oriented to time Psych: COMMON NORMALS: mental status grossly normal, Normal thought process present, cooperative, speech normal, activity/motor behavior normal, denies homicidal ideation and denies suicidal ideation APPEARANCE: Yes grossly normal ATTITUDE: Yes calm ACTIVITY/MOTOR BEHAVIOR: No psychomotor agitation and Yes Avoids eye contact (attititude/behavior) SPEECH: Yes normal speech MOOD & AFFECT: Yes sad THOUGHT PROCESS: Normal thought process present THOUGHT CONTENT: Yes Normal thought content present ATTENTION/CONCENTRATION: Yes attention grossly intact and Yes concentration grossly intact MEMORY/COGNITION: Yes memory grossly intact and Yes cognition grossly intact INSIGHT: Fair insight present (Psych) JUDGEMENT: Fair judgement present (Psych) MDM - Psych Lab Data: Labs: Lab Results 04/24/20 04/24/20 04/24/20 Range/Units 11:14 12:05 12:05 WBC 4.6 (4.0-10.0) 10^3/ uL RBC 4.78 (4.1-5.3) 10^6/u L Hgb 13.1 (11.5-15.3) g/dL Hct 39.7 (37.0-47.0) % MCV 83.1 (81-99) fL MCH 27.4 L (28.0-34.0) pg MCHC 33.0 (30.0-36.0) g/dL RDW 13.2 (12.1-15.1) % Plt Count 198 (130-400) 10^3/c mm MPV 11.0 H (7.4-10.4) fL Neut % (Auto) 51.5 % Lymph % (Auto) 36.9 % [place] % (Auto) 8.3 % Eos % (Auto) 2.0 % Baso % (Auto) 1.1 % Neut # (Auto) 2.36 (1.8-7.7) 10^3/u L Lymph # (Auto) 1.7 (0.8-4.8) 10^3/u L [place] # (Auto) 0.4 (0.2-0.9) 10^3/u L Eos # (Auto) 0.1 (0.0-0.8) 10^3/u L Baso # (Auto) 0.1 (0.0-0.1) 10^3/u L Nucleated RBC % (a uto) 0 % Nucleated RBCs # 0.0 /100WBC Sodium 137 (136-145) mmol/L Potassium 4.1 (3.5-5.1) mmol/L Chloride 101 (98-107) mmol/L Carbon Dioxide 28 (22-29) mmol/L Anion Gap 12.1 (5-19) BUN 12 (6-20) mg/dL Creatinine 0.8 (0.5-0.9) mg/dL GFR Calculation 77.2 L (90-130) mL/min Glucose 103 (65-115) mg/dL Calculated Osmolal ity 284 L (285-295) mOsm/k g Calcium 9.6 (8.5-10.5) mg/dL Total Bilirubin 0.3 (0.15-1.2) mg/dL AST 18 (0-32) U/L ALT 11 (0-33) U/L Alkaline Phosphata se 84 (35-105) IU/L Total Protein 7.3 (6.6-8.7) g/dL Albumin 4.4 (3.5-5.2) g/dL Globulin 2.9 (1.3-4.6) g/dL HCG, Qual (Negative) Salicylates < 0.3 L (3-10) mg/dL Urine Opiates Scre en Negative (Negative) ng/mL Acetaminophen < 5.0 L (10-30) ug/mL Ur Barbiturates Sc reen Positive H (Negative) ng/mL Ur Phencyclidine S crn Negative (Negative) ng/mL Ur Amphetamines Sc reen Negative (Negative) ng/mL U Benzodiazepines Scrn Negative (Negative) ng/mL Urine Cocaine Scre en Negative (Negative) ng/mL U Marijuana (THC) Screen Positive H (Negative) ng/mL Ethyl Alcohol < 10 (0-10) mg/dL 04/24/20 Range/Units 12:05 WBC (4.0-10.0) 10^3/ uL RBC (4.1-5.3) 10^6/u L Hgb (11.5-15.3) g/dL Hct (37.0-47.0) % MCV (81-99) fL MCH (28.0-34.0) pg MCHC (30.0-36.0) g/dL RDW (12.1-15.1) % Plt Count (130-400) 10^3/c mm MPV (7.4-10.4) fL Neut % (Auto) % Lymph % (Auto) % [place] % (Auto) % Eos % (Auto) % Baso % (Auto) % Neut # (Auto) (1.8-7.7) 10^3/u L Lymph # (Auto) (0.8-4.8) 10^3/u L [place] # (Auto) (0.2-0.9) 10^3/u L Eos # (Auto) (0.0-0.8) 10^3/u L Baso # (Auto) (0.0-0.1) 10^3/u L Nucleated RBC % (a uto) % Nucleated RBCs # /100WBC Sodium (136-145) mmol/L Potassium (3.5-5.1) mmol/L Chloride (98-107) mmol/L Carbon Dioxide (22-29) mmol/L Anion Gap (5-19) BUN (6-20) mg/dL Creatinine (0.5-0.9) mg/dL GFR Calculation (90-130) mL/min Glucose (65-115) mg/dL Calculated Osmolal ity (285-295) mOsm/k g Calcium (8.5-10.5) mg/dL Total Bilirubin (0.15-1.2) mg/dL AST (0-32) U/L ALT (0-33) U/L Alkaline Phosphata se (35-105) IU/L Total Protein (6.6-8.7) g/dL Albumin (3.5-5.2) g/dL Globulin (1.3-4.6) g/dL HCG, Qual Negative (Negative) Salicylates (3-10) mg/dL Urine Opiates Scre en (Negative) ng/mL Acetaminophen (10-30) ug/mL Ur Barbiturates Sc reen (Negative) ng/mL Ur Phencyclidine S crn (Negative) ng/mL Ur Amphetamines Sc reen (Negative) ng/mL U Benzodiazepines Scrn (Negative) ng/mL Urine Cocaine Scre en (Negative) ng/mL U Marijuana (THC) Screen (Negative) ng/mL Ethyl Alcohol (0-10) mg/dL Discharge Plan Discharge Patient Disposition: Admitted As Inpatient Clinical Impression: Visual hallucinations, Auditory hallucinations, Severe anxiety Condition: Stable Prescriptions: No Action lisinopril 20 mg tablet 20 mg PO DAILY Qty: 30 RF: 0 Norvasc 5 mg Tablet 5 mg PO DAILY RF: 0 [id number]-ffmnxrlpdbnww-zyqa 50-325-40 mg Tablet 1 tab PO Q6H PRN (Reason: Migraine Headache) RF: 0 Protonix 20 mg Tablet,Delayed Release (Dr/Ec) 20 mg PO DAILY RF: 0 trazodone 100 mg Tablet 100 mg PO BEDTIME RF: 0 baclofen 10 mg Tablet 5 - 10 mg PO BID PRN (Reason: Muscle Spasm) RF: 0 hydroxyzine HCl 25 mg Tablet 25 mg PO Q8H PRN (Reason: unknown) RF: 0 ProAir HFA 90 mcg/actuation Hfa Aerosol Inhaler 2 puff INHALATION Q6H PRN (Reason: Shortness Of Breath) RF: 0 Coding Level of Care Code ED Delivery Associate for [employer] Fwd Exam Detailed
--- NOTE | 2020-04-24 12:02 | PC.PHAR ---
pt states she takes care of her own medications-pt brought in her medication bottles and states she takes what was in the bag
[2020-04-24 12:16] LABS: Basophils # 0.1 10^3/uL (0.0-0.1); Basophils % 1.1 %; Eosinophils # 0.1 10^3/uL (0.0-0.8); Hematocrit 39.7 % (37.0-47.0); Hemoglobin 13.1 g/dL (11.5-15.3); Lymphocytes # 1.7 10^3/uL (0.8-4.8); Lymphocytes % 36.9 %; Mean Corpuscular Hemoglobin 27.4 pg (28.0-34.0); Mean Corpuscular Volume 83.1 fL (81-99); Monocytes # 0.4 10^3/uL (0.2-0.9); Monocytes % 8.3 %; Neutrophils # 2.36 10^3/uL (1.8-7.7); Neutrophils % 51.5 %; Nucleated Red Blood Cells % 0 %; Platelet Count 198 10^3/cmm (130-400); Red Blood Count 4.78 10^6/uL (4.1-5.3); Red Cell Distribution Width 13.2 % (12.1-15.1); White Blood Count 4.6 10^3/uL (4.0-10.0)
[2020-04-24 12:39] LABS: Amphetamines Screen Urine Negative (Negative); Barbiturates Screen Urine Positive (Negative); Benzodiazepines Screen Urine Negative (Negative); Cocaine Screen Urine Negative (Negative); Opiate Screen Urine Negative (Negative); PCP Screen Urine Negative (Negative); THC Screen Urine Positive (Negative)
[2020-04-24 12:50] LABS: Alanine Aminotransferase 11 U/L (0-33); Albumin Level 4.4 g/dL (3.5-5.2); Alkaline Phosphatase 84 IU/L (35-105); Anion Gap 12.1 (5-19); Aspartate Amino Transferase 18 U/L (0-32); Blood Urea Nitrogen 12 mg/dL (6-20); Calcium 9.6 mg/dL (8.5-10.5); Carbon Dioxide 28 mmol/L (22-29); Chloride 101 mmol/L (98-107); Globulin 2.9 g/dL (1.3-4.6); Glomerular Filtration Rate 77.2 mL/min (90-130); Glucose 103 mg/dL (65-115); Osmolality Calculated 284 mOsm/kg (285-295); Potassium 4.1 mmol/L (3.5-5.1); Sodium 137 mmol/L (136-145); Total Bilirubin 0.3 mg/dL (0.15-1.2); Total Protein 7.3 g/dL (6.6-8.7)
[2020-04-24 12:51] LABS: Acetaminophen < 5.0 ug/mL (10-30); Alcohol Level < 10 mg/dL (0-10); Salicylate < 0.3 mg/dL (3-10)
[2020-04-24 13:00] LABS: HCG, Serum Qual Negative (Negative)
[2020-04-24 13:56] VITALS: BP 120/76; PULSE 69; RESP 18; O2SAT 98
[2020-04-24 14:00] VITALS: BP 144/103; PULSE 86; RESP 20; TEMP 36.4; O2SAT 97
[2020-04-24 19:38] VITALS: BP 112/76; PULSE 67; RESP 18; TEMP 36.9; O2SAT 100
[2020-04-24] MEDS: trazodone 50 mg Tablet PO (20:08)
[2020-04-25 06:00] VITALS: BP 125/90; PULSE 100; RESP 19; TEMP 36.8; O2SAT 96
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
[2020-04-25 13:50] VITALS: BP 137/92; PULSE 87; RESP 18; TEMP 36.4; O2SAT 95
[2020-04-25] MEDS: OLANZapine 5 mg ODT PO (15:36)
--- NOTE | 2020-04-25 15:37 | PC.NURSE ---
PRN ZYPREXA ZYDIS 5 MG GIVEN PO PER PT C/O AGITATION. PT TEARFUL, CRYING LOUDLY IN ROOM. NURSING STAFF WENT TO TALK TO PT IN HER ROOM, PT STATES SHE'S UPSET BECAUSE SHE MISSES HER FAMILY. TOOK MED WITHOUT INCIDENT. WILL CONT TO MONITOR
--- NOTE | 2020-04-25 16:40 | PC.RESP ---
Smoking Cessation information sent to patient.
[2020-04-25 20:20] VITALS: BP 105/68; PULSE 73; RESP 17; TEMP 36.3; O2SAT 97
[2020-04-26 06:00] VITALS: BP 127/82; PULSE 73; RESP 18; TEMP 36.9; O2SAT 97
[2020-04-26] MEDS: fluoxetine 20 mg Capsule PO (08:13)
--- NOTE | 2020-04-26 13:05 | P.PN_ITS ---
Subjective NPU Subjective: Interval history: Araseli presents today reporting that she is feeling a little better from a standpoint of her depression but somewhat somatically focused on some pain in her neck. She reports that her mother had a similar pain and she seems to be worried that she has the same issues that her mother has. This is something that was discussed in her last hospitalization and will be appropriate for outpatient follow-up. She reports she is doing well with the medication being restarted and we were able to work with the treatment team to get her reconnected with outpatient services and a usp at [facility] so she has a place that is safe to stay and get her bearings back in order. She reports that she is eating okay and sleeping a little better. Mental Status Exam MSE Comments: This is an obese white female with limited to no dentition with limited grooming and adequate eye contact. No abnormal movements except for mild psychomotor retardation. Cooperative with exam in mild distress. Speech was decreased rate and volume and mildly dysarthric likely secondary to missing teeth. Mood described as a little better but in pain, affect congruent. Thought process organized. Thought content: Patient denied suicidal or homicidal ideation today, there were no delusions reported or noted, she denied any auditory or visual hallucination. Attention and concentration were intact and memory appeared mostly reliable but none were formally tested. She is alert and oriented x3. Insight and judgment are limited, impulse control limited. Vitals/I&O/Wt Last Vital Signs Temp 98.4 F 04/26/20 06:00 Pulse 73 04/26/20 06:00 Resp 18 04/26/20 06:00 BP 127/82 04/26/20 06:00 Pulse Ox 97 04/26/20 06:00 Data NPU : 04/24/20 12:05 04/24/20 12:05 A&P Additional A&P Information (1) Visual hallucinations: (2) Auditory hallucinations: (3) Severe anxiety: (4) Essential hypertension: (5) Borderline intellectual functioning: (6) Major depressive disorder: (7) Suicidal behavior: (8) Depression: (9) Suicidal ideation: Additional A&P Information This is a 45 year old, white female, with history of psychosis and multiple hospitalizations, trauma history and likely intellectual disability, who presents reporting that she has still really not adjusted to being in [place], and is off of her medication and struggling to keep it together. 1. Continue current medication. Except: 2. Continue every 15 minute checks for safety. 3. Encourage individual, group and milieu therapies. 4. Encourage sober living treatment after discharge at the highest level of care to which she is willing to commit. 5. Plan to DC tomorrow to [facility] usp. Involuntary Hold Information 96 Hour Hold: 96 Hour Involuntary Admission: No Attestations NPU Medical Necessity Statement*: Inpatient hospitalization is medically necessary and the clinically appropriate intervention at this time. We will monitor medications and make changes as indicated. Patient will be in the hospital for over two midnights. Likely length of stay 1-3 days. Tentative plan for discharge in the morning. Coding Level of Care Code Acute Social Media Executive for Irish Holt
[2020-04-26 13:25] VITALS: BP 147/103; PULSE 89; RESP 16; TEMP 37.3; O2SAT 94
--- NOTE | 2020-04-26 19:53 | P.PN_ITS ---
NPU Therapy Progress Note Therapy Progress Note Date: 04/26/20 Time In: 18:40 Time Out: 18:50 Symptoms Reported: anxiety Mood: sleepy, polite Progress Note: [facility] spoke with Araseli morrow resting in bed. She was asleep but remains pleasant. She is concerned about upcoming appointments she has at [facility] and [facility]. She is concerned about medicaid transport rides and them having her correct address, as [facility]. She request a therapist and woolen tester from [facility]. Araseli does not express much emotion about what brought her to the NPU, but does state she has alot of stress in her personal life and suffers from high anxiety. She reports missing friends in [place] and talks some about how she grew up there and the subsequent moves at about age 14. She has a good relationship with her mom but is vague about why she had to move out of staying with her. She puts the sheet almost over her head when speaking about more emotional issues. OYSTER SHIPPER offered to follow up with her jacky rrow, should she still be hospitalized, and Araseli says this is fine. Intervention: OYSTER SHIPPER provided active listening and empathetic support. She was encouraged to follow up with outpatient services after discharge. Reported Goals Before Discharge: Figure out about her appointments coming up ([facility] and [facility]), get a woolen tester and therapist from [facility]
--- NOTE | 2020-04-26 19:53 | PM.NPTHER ---
NPU Therapy Progress Note Therapy Progress Note Date: 04/26/20 Time In: 18:40 Time Out: 18:50 Symptoms Reported: anxiety Mood: sleepy, polite Progress Note: [facility] spoke with Araseli morrow resting in bed. She was asleep but remains pleasant. She is concerned about upcoming appointments she has at [facility] and [facility]. She is concerned about medicaid transport rides and them having her correct address, as [facility]. She request a therapist and early childhood aide classroom from [facility]. Araseli does not express much emotion about what brought her to the NPU, but does state she has alot of stress in her personal life and suffers from high anxiety. She reports missing friends in [place] and talks some about how she grew up there and the subsequent moves at about age 14. She has a good relationship with her mom but is vague about why she had to move out of staying with her. She puts the sheet almost over her head when speaking about more emotional issues. BUMPER OPERATOR offered to follow up with her tomorrow, should she still be hospitalized, and Araseli says this is fine. Intervention: BUMPER OPERATOR provided active listening and empathetic support. She was encouraged to follow up with outpatient services after discharge. Reported Goals Before Discharge: Figure out about her appointments coming up ([facility] and [facility]), get a early childhood aide classroom and therapist from [facility]
[2020-04-26 21:21] VITALS: BP 150/101; PULSE 87; RESP 19; TEMP 36.7; O2SAT 94
[2020-04-26] MEDS: trazodone 50 mg Tablet PO (21:23)
[2020-04-27 06:00] VITALS: BP 157/110; PULSE 83; RESP 17; TEMP 37.1; O2SAT 92
[2020-04-27] MEDS: fluoxetine 20 mg Capsule PO (08:15)
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
[2020-04-27 13:08] VITALS: BP 157/110; PULSE 83; RESP 17; TEMP 37.1; O2SAT 92
== END 2020-04-27 14:15 | disposition home or self-care (01) | DRG 885 ==
LOC: ER 13:13 → NP 13:49
PROVIDERS: Admitting Provider Psychiatry & Neurology Psychiatry; Emergency Provider Physician Assistant; Visit Provider Psychiatry & Neurology Psychiatry
DX: F33.3 Major depressive disorder, recurrent, severe with psychotic symptoms (principal); R45.851 Suicidal ideations; I10 Essential (primary) hypertension; F41.9 Anxiety disorder, unspecified; Z62.810 Personal history of physical and sexual abuse in childhood; Z62.819 Personal history of unspecified abuse in childhood; F17.210 Nicotine dependence, cigarettes, uncomplicated
CPT/HCPCS: 12345; 36415; 80053; 80306; 80307; 84703; 85025; 99284

== ENCOUNTER → 2020-05-01 13:39 | Outpatient (BNVA) | payer MEDICAID, SELFPAY | PROVIDERS: Visit Provider Nurse Practitioner Psychiatric/Mental Health | DX: F39 Unspecified mood [affective] disorder (principal); F41.9 Anxiety disorder, unspecified; R41.83 Borderline intellectual functioning | CPT/HCPCS: 99214 ==

== ENCOUNTER 2020-05-18 13:17 | Emergency (ER) | payer MEDICAID, SELFPAY ==
[2020-05-18 13:19] VITALS: BP 198/136; PULSE 90; RESP 18; TEMP 36.8; O2SAT 97; BMI 33.3
--- NOTE | 2020-05-18 13:46 | ED_ITS ---
HPI - Back Pain/Injury General: Chief Complaint: Back Pain/Injury Stated Complaint: BACK PAIN Time Seen by Provider: 05/18/20 13:27 Source: patient and EMS Mode of arrival: EMS Limitations: no limitations History of Present Illness: HPI Narrative: 45-year-old female patient presents to the emergency department with 3-day history of low back pain. She states is living at the homeless care home here in [place]. Family resides in [place]. She denies heavy lifting or fall that would precipitated back pain. She states pain is worse with movement, lying down makes it better. She denies weakness of the bilateral lower extremities. She reports previous episode in the past and was diagnosed with UTI. She denies urinary symptoms upon exam. She has not taken anything for pain today. MD elicited complaint: back pain Pertinent past history: prior back pain Onset (ago): day(s) (3) Timing: intermittent Severity: moderate Similar Symptoms Previously: Yes Quality: dull and aching Location: lumbar spine, right lower back and right upper back Radiation: none Exacerbating factors: movement, walking, lifting and other (Bending over) Relieving factors: immobilization Associated symptoms: Reports no associated symptoms; Deny abdominal pain, chills, dysuria, fatigue, fever(s), nausea or vomiting Work related injury: No Review of Systems General: Reports: 10 or more systems reviewed and unremarkable except in HPI and below Const: Denies: fever(s), chills, body aches, fatigue, malaise or diaphoresis Eyes: Denies: blurry vision or eye redness ENMT: Denies: throat pain, hoarseness, dental pain, disequilibrium, nasal discharge or nasal congestion Card: Denies: chest pain, palpitations or irregular heart rhythm Resp: Denies: dyspnea, productive cough, non-productive cough or wheezing GI: Denies: abdominal pain, nausea or vomiting : Denies: difficulty voiding or dysuria Musc: Reports: back pain; Denies: neck pain, joint pain, joint stiffness or muscle weakness Skin/Breast: Denies: rash or pruritus Neuro: Denies: headache(s), weakness in extremities or behavioral changes Psych: Denies: anxiety, depression or sleeping more Rodrigue/Lymph: Denies: easy bruising PFS ED PFSH: Medical History Anxiety and depression Asthma Bipolar 1 disorder Essential hypertension Surgical History H/O: hysterectomy Previous section Tubal ligation status Social History Smoking and tobacco status: current every day smoker cigarettes Years cigarettes smoked: 10 [ Other cigarette details: I don't know. ] Quit status (tobacco): not considering quitting Second hand smoke exposure: No Physical Exam Const: COMMON NORMALS: no acute distress, patient oriented x3, healthy appearing and alert GENERAL APPEARANCE: cooperative, comfortable and well hydrated HENMT: COMMON NORMALS: normocephalic, Normal external nose present and moist oral mucous membranes HEAD & SCALP: normocephalic NOSE: Normal external nose present Eye: COMMON NORMALS: Equal, round and reactive pupils present and EOMs intact bilaterally GENERAL EYE: appearance normal, both eyes and all related structures PUPIL: Yes Equal, round and reactive pupils present Neck/C-Spine: COMMON NORMALS: full ROM, no lymphadenopathy and no meningeal signs GENERAL: Yes normal visual inspection and Yes trachea midline CERVICAL SPINE: Yes cervical ROM normal Lymph: LYMPHATIC: no lymphadenopathy noted Chest: COMMONS NORMALS: normal inspection of the chest Resp: COMMON NORMALS: normal respiratory effort and clear to auscultation bilaterally AUSCULTATION: clear to auscultation bilaterally Cardio: COMMON NORMALS: regular rhythm, S1 normal heart sound present and S2 normal heart sound present RHYTHM: regular rhythm HEART SOUNDS: S1 normal heart sound present and S2 normal heart sound present GI: COMMON NORMALS: Soft to palpation and non-tender INSPECTION: Yes normal to inspection PALPATION: Yes Soft to palpation : COMMON NORMALS: Yes no CVA tenderness BLADDER/KIDNEY EXAM: Yes no CVA tenderness Back/Pelvis: COMMON NORMALS: no CVA tenderness THORACIC SPINE/UPPER BACK: Yes thoracic ROM normal, Yes ROM limited, No thoracic spinal tenderness, No paraspinal muscle tenderness and No paraspinal muscle spasm LUMBAR SPINE/LOWER BACK: Yes normal to inspection, Yes ROM limited, Yes pain with ROM, No lumbar spinal tenderness, Yes paraspinal muscle tenderness, Yes paraspinal muscle spasm, Yes straight leg raise negative bilaterally and Yes bend over test abnormal PELVIS: Yes buttocks normal SACROILIAC JOINTS: Yes SI joints normal SACRUM: no ecchymosis Extremity: COMMON NORMALS: normal to inspection and capillary refill normal Neuro: COMMON NORMALS: patient oriented x3 and no focal motor deficits SENSORIUM/ORIENTATION: Yes alert MENINGEAL SIGNS: Yes no meningeal signs SPEECH: speech normal GAIT: Yes Normal gait present MOTOR EXAM: 5/5 motor strength present throughout and Normal motor muscle tone present throughout Psych: COMMON NORMALS: mental status grossly normal, Normal thought process present and cooperative ACTIVITY/MOTOR BEHAVIOR: Yes appropriate eye contact THOUGHT PROCESS: Normal thought process present Skin: COMMON NORMALS: no rashes or lesions noted and turgor normal GENERAL SKIN EXAM: no rashes or lesions noted and turgor normal Course Vital Signs: Vital signs: Vital Signs Temperature 98.3 F 05/18/20 13:19 Pulse Rate 82 05/18/20 14:18 Respiratory Rate 18 05/18/20 14:18 Blood Pressure 170/105 05/18/20 14:22 Pulse Oximetry 96 05/18/20 14:22 MDM - Back Pain/Injury Lab Data: Labs: Lab Results 05/18/20 Range/Units 13:52 Urine Color Yellow (Yellow) Urine Appearance Cloudy (CLEAR) Urine pH 5 (5-7) Ur Specific Gravit y 1.020 (1.005-1.030) Urine Protein Trace (Negative) Urine Glucose (UA) Norm (Normal) Urine Ketones 1+ H (Negative) Urine Blood Trace H (Negative) Urine Nitrate Negative (Negative) Urine Bilirubin 1+ H (Negative) Urine Urobilinogen Norm (Negative) mg/dL Ur Leukocyte Fern ase 2+ H (Negative) Discharge Plan Discharge Patient Disposition: Home Clinical Impression: Low back pain Qualifiers: Chronicity: acute Back pain laterality: bilateral Sciatica presence: without sciatica Qualified Code(s): M54.5 - Low back pain Back strain Qualifiers: Encounter type: initial encounter Qualified Code(s): S39.012A - Strain of muscle, fascia and tendon of lower back, initial encounter UTI (urinary tract infection) Qualifiers: Urinary tract infection type: acute cystitis Hematuria presence: without hematuria Qualified Code(s): N30.00 - Acute cystitis without hematuria Condition: Stable Prescriptions: New Robaxin-750 750 mg tablet 750 mg PO TID Qty: 20 RF: 0 Macrobid 100 mg capsule 100 mg PO BID 5 Days Qty: 10 RF: 0 Discontinued baclofen 10 mg Tablet 5 - 10 mg PO BID PRN (Reason: Muscle Spasm) RF: 0 No Action lisinopril 20 mg tablet 20 mg PO DAILY Qty: 30 RF: 0 Norvasc 5 mg Tablet 5 mg PO DAILY RF: 0 veindjomoo-srdwgmuwoqclh-pvkz 50-325-40 mg Tablet 1 tab PO Q6H PRN (Reason: Migraine Headache) RF: 0 Protonix 20 mg Tablet,Delayed Release (Dr/Ec) 20 mg PO DAILY RF: 0 hydroxyzine HCl 25 mg Tablet 25 mg PO Q8H PRN (Reason: unknown) RF: 0 ProAir HFA 90 mcg/actuation Hfa Aerosol Inhaler 2 puff INHALATION Q6H PRN (Reason: Shortness Of Breath) RF: 0 fluoxetine 20 mg Capsule 20 mg PO DAILY 30 Days Qty: 30 RF: 1 buspirone 15 mg Tablet 15 mg PO 0900,2100 30 Days Qty: 60 RF: 1 trazodone 100 mg Tablet 100 mg PO BEDTIME 30 Days Qty: 30 RF: 1 Discharge Orders: Discharge ED (Routine); Ordered 05/18/20 Ordered By: Geri Cantu Discharge Diet: Usual diet Discharge Activity: Limit activity as instructed Patient Instructions: Urinary Tract Infection in Women (ED), Low Back Strain (ED), Acute Low Back Pain (ED), Core Strengthening Exercises (GEN), Opioid Safety Activity Restrictions/Additional Instructions: Take Tylenol, 1 g 3 times daily as needed for pain Return to the emergency department if you develop incontinence of the bowel or bladder, difficulty with urination, or other concerning symptoms Take Robaxin 3 times daily as needed for pain, may cause drowsiness so do not operate heavy machinery or drive with use of medication Apply warm moist heat, alternate with cool compresses as needed for pain to the lumbar back Use over the counter Salon Pas topical for back pain, apply to the affected area as directed Avoid twisting bending or heavy lifting greater than 10 pounds for the next week Return to the emergency department if you develop concerning symptoms medical and health services manager will contact you with an appointment with primary care for follow-up needs for blood pressure. Coding Level of Care Code ED Historical Archeologist for [employer] Fwd Exam Comprehensive
[2020-05-18 14:18] VITALS: BP 165/115; PULSE 82; RESP 18; O2SAT 96
[2020-05-18 14:22] VITALS: BP 170/105; O2SAT 96
[2020-05-18 14:25] LABS: Glucose Urine UA Norm (Normal); Urine Appearance Cloudy (CLEAR); Urine Color Yellow (Yellow); Urobilinogen Urine Norm (Negative)
[2020-05-18] MEDS: acetaminophen 500 mg Tablet 1000 MG PO (14:26)
[2020-05-18 14:32] LABS: Add Urine Microscopic? YES; Ketones Urine 1+ (Negative); Protein Urine Trace (Negative); pH Urine 5 (5-7)
[2020-05-18 14:33] LABS: Bilirubin Urine 1+ (Negative); Blood Urine Trace (Negative); Leukocyte Esterase Urine 2+ (Negative); Nitrate Urine Negative (Negative)
[2020-05-18 14:34] LABS: Squamous Epithelial Cell Urine 25-40 /hpf (0-5); WBC Urine 25-40 /hpf (0-5)
[2020-05-18 14:35] LABS: Add Urine Culture? No; Bacteria Urine 2+ /hpf; RBC Urine 0-4 /hpf (0-2); Trichomonas Urine 2+ /hpf
--- NOTE | 2020-05-21 11:28 | DCPLANNER ---
renal case manager had message to speak with patient about getting established with a primary care physician. renal case manager called and spoke with patient, she stated that she would like to get established with a physician in this area. renal case manager called [facility], a follow up appointment was scheduled for Monday, May 25, 2020 at 12:[address] Mercado. renal case manager called patient, and gave patient the appointment information. Patient stated that she would attend the appointment.
--- NOTE | 2020-06-08 15:49 | DCPLANNER ---
Patient had a follow up appointment scheduled for 05.25.20 with [facility] - patient did attend appointment.
== END 2020-05-18 14:46 | disposition home or self-care (01) ==
LOC: ER 14:33
PROVIDERS: Emergency Provider Nurse Practitioner Family
DX: S39.012A Strain of muscle, fascia and tendon of lower back, initial encounter (principal); N30.00 Acute cystitis without hematuria; I10 Essential (primary) hypertension; F17.210 Nicotine dependence, cigarettes, uncomplicated; X58.XXXA Exposure to other specified factors, initial encounter
CPT/HCPCS: 81001; 99282

== ENCOUNTER → 2020-06-05 08:05 | Outpatient (BNVA) | payer MEDICAID, SELFPAY | PROVIDERS: Visit Provider Nurse Practitioner Psychiatric/Mental Health | DX: R41.83 Borderline intellectual functioning (principal); F41.9 Anxiety disorder, unspecified; F39 Unspecified mood [affective] disorder | CPT/HCPCS: 99213 ==

== ENCOUNTER → 2020-07-03 09:20 | Outpatient (BNVA) | payer MEDICAID, SELFPAY | PROVIDERS: Visit Provider Nurse Practitioner Psychiatric/Mental Health | DX: R41.83 Borderline intellectual functioning (principal); F41.9 Anxiety disorder, unspecified; F39 Unspecified mood [affective] disorder | CPT/HCPCS: 99213 ==

== ENCOUNTER → 2020-08-02 14:07 | Outpatient (BNVA) | payer MEDICAID, SELFPAY | PROVIDERS: Referring Provider Dermatology; Visit Provider Podiatrist Foot & Ankle Surgery | DX: M21.612 Bunion of left foot (principal); M21.611 Bunion of right foot; M79.672 Pain in left foot; M79.671 Pain in right foot | CPT/HCPCS: 73630 ==

== ENCOUNTER 2020-08-14 17:59 | Emergency (ER) | payer MEDICAID, SELFPAY ==
[2020-08-14 18:22] VITALS: BP 195/109; PULSE 86; RESP 18; TEMP 36.8; O2SAT 97; BMI 41.9
--- NOTE | 2020-08-14 18:54 | XRR_ITS ---
PROCEDURE INFORMATION: Exam: XR Abdomen Exam date and time: 08/14/2020 7:08 PM Age: 45 years old Clinical indication: Abdominal pain; Other: Abd discomfort; Prior surgery; Surgery type: C section, partial hyst; Patient HX: Smoker, no cancer, c section/partial hyst, abd pain; Additional info: Abdominal discomfort TECHNIQUE: Imaging protocol: XR of the abdomen. Views: Frontal supine view of the abdomen. 1 View. Total images: 2 COMPARISON: No relevant prior studies available. FINDINGS: Gastrointestinal tract: Nonobstructive bowel pattern. No visible adynamic or reactive ileus. Bones/joints: Scoliosis. Degenerative disease and degenerative disc disease of the lumbosacral spine. Other findings: Obesity. XR/XR KUB portable [id number] IMPRESSION: Nonacute.
--- NOTE | 2020-08-14 19:02 | ED_ITS ---
HPI - Psych General: Chief Complaint: Psychiatric Symptoms Stated Complaint: STRESS Time Seen by Provider: 08/14/20 18:43 History of Present Illness: HPI Narrative: 45-year-old female presents with generalized medical complaints patient complains of vague diffuse lower abdominal pain. Patient reports some mild urinary symptoms. Patient reports she has little bit of pain in her back and her size. Patient also reports that she feels depressed and that she feels suicidal. She reports she feels suicidal after get a fight with her mom. Patient reports that she feels like she needs to go for inpatient psychiatric care. Patient denies any plans. Associated symptoms: Reports depression and suicidal ideation Review of Systems Const: Reports: body aches; Denies: fever(s) or chills Card: Denies: chest pain or palpitations Resp: Denies: dyspnea or productive cough GI: Reports: abdominal pain; Denies: nausea or vomiting : Reports: flank pain (Bilateral sided flank and back), urinary urgency and other (Mild discomfort with urination but no pain) Musc: Denies: neck pain Skin/Breast: Denies: rash or pruritus Neuro: Denies: headache(s) or difficulty walking Psych: Reports: depression and suicidal ideation [facility] ED PFSH: Medical History Anxiety and depression Asthma Bipolar 1 disorder Essential hypertension Surgical History H/O: hysterectomy Previous section Tubal ligation status Social History Smoking and tobacco status: current every day smoker cigarettes Years cigarettes smoked: 10 [ Other cigarette details: I don't know. ] Quit status (tobacco): not considering quitting Second hand smoke exposure: No Physical Exam Const: COMMON NORMALS: no acute distress and alert GENERAL APPEARANCE: comfortable NUTRITIONAL APPEARANCE: obese HENMT: COMMON NORMALS: normocephalic and atraumatic HEAD & SCALP: normocephalic and atraumatic Eye: COMMON NORMALS: Equal, round and reactive pupils present and EOMs intact bilaterally PUPIL: Yes Equal, round and reactive pupils present Neck/C-Spine: COMMON NORMALS: full ROM and supple Chest: COMMONS NORMALS: normal inspection of the chest Resp: COMMON NORMALS: normal respiratory effort and clear to auscultation bi laterally EFFORT & INSPECTION: Yes able to speak in complete sentences AUSCULTATION: clear to auscultation bilaterally Cardio: COMMON NORMALS: regular rate and regular rhythm RATE: regular rate RHYTHM: regular rhythm GI: COMMON NORMALS: Soft to palpation PALPATION: Yes Soft to palpation and Yes Tenderness to palpation present (GI) (Mild bilateral lower quadrant, very vague) Details: other Extremity: COMMON NORMALS: full ROM and capillary refill normal Neuro: COMMON NORMALS: no focal motor deficits and no sensory deficits noted SENSORIUM/ORIENTATION: Yes alert Psych: COMMON NORMALS: speech normal ATTITUDE: Yes Withdrawn affect present SPEECH: Yes normal speech MOOD & AFFECT: Yes depressed mood ATTENTION/CONCENTRATION: Yes attention grossly intact Skin: COMMON NORMALS: no rashes or lesions noted GENERAL SKIN EXAM: no rashes or lesions noted Course Vital Signs: Vital signs: Vital Signs Temperature 98.3 F 08/14/20 18:22 Pulse Rate 86 08/14/20 18:22 Respiratory Rate 18 08/14/20 18:22 Blood Pressure 195/109 08/14/20 18:22 Pulse Oximetry 97 08/14/20 18:22 MDM - Psych MDM Narrative: Medical decision making narrative: Patient was evaluated by Dr. Rosales via telemedicine's. This time he does not feel she needs further admission. 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 Patient does have what appears to be a mild UTI and will be treated with Macrobid. Patient stable and will be discharged home Lab Data: Attestation: I reviewed the patient's lab results. Labs: Lab Results 08/14/20 08/14/20 08/14/20 Range/Units 19:05 19:05 19:05 WBC (4.0-10.0) 10^3/ uL RBC (4.1-5.3) 10^6/u L Hgb (11.5-15.3) g/dL Hct (37.0-47.0) % MCV (81-99) fL MCH (28.0-34.0) pg MCHC (30.0-36.0) g/dL RDW (12.1-15.1) % Plt Count (130-400) 10^3/c mm MPV (7.4-10.4) fL Neut % (Auto) % Lymph % (Auto) % [place] % (Auto) % Eos % (Auto) % Baso % (Auto) % Neut # (Auto) (1.8-7.7) 10^3/u L Lymph # (Auto) (0.8-4.8) 10^3/u L [place] # (Auto) (0.2-0.9) 10^3/u L Eos # (Auto) (0.0-0.8) 10^3/u L Baso # (Auto) (0.0-0.1) 10^3/u L Nucleated RBC % (a uto) % Nucleated RBCs # /100WBC Sodium (136-145) mmol/L Potassium (3.5-5.1) mmol/L Chloride (98-107) mmol/L Carbon Dioxide (22-29) mmol/L Anion Gap (5-19) BUN (6-20) mg/dL Creatinine (0.5-0.9) mg/dL GFR Calculation (90-130) mL/min Glucose (65-115) mg/dL Calculated Osmolal ity (285-295) mOsm/k g Calcium (8.5-10.5) mg/dL Total Bilirubin (0.15-1.2) mg/dL AST (0-32) U/L ALT (0-33) U/L Alkaline Phosphata se (35-105) IU/L Total Protein (6.6-8.7) g/dL Albumin (3.5-5.2) g/dL Globulin (1.3-4.6) g/dL HCG, Qual Negative (Negative) Urine Color Yellow (Yellow) Urine Appearance Cloudy (CLEAR) Urine pH 5 (5-7) Ur Specific Gravit y 1.020 (1.005-1.030) Urine Protein Neg (Negative) Urine Glucose (UA) Norm (Normal) Urine Ketones Negative (Negative) Urine Blood 2+ H (Negative) Urine Nitrate Negative (Negative) Urine Bilirubin Neg (Negative) Urine Urobilinogen 1 H (Negative) mg/dL Ur Leukocyte Fern [place]se 2+ H (Negative) Urine RBC 5-10 H (0-2) /hpf Urine WBC 80-100 H (0-5) /hpf Ur Squamous Epith Cells 25-40 H (0-5) /hpf Ur Transition Epit h Cell 0-4 /hpf Amorphous Sediment Not Reportable Urine Bacteria 2+ H (NONE) /hpf Salicylates (3-10) mg/dL Urine Opiates Scre en Negative (Negative) ng/mL Acetaminophen (10-30) ug/mL Ur Barbiturates Sc reen Negative (Negative) ng/mL Ur Phencyclidine S crn Negative (Negative) ng/mL Ur Amphetamines Sc reen Negative (Negative) ng/mL U Benzodiazepines Scrn Negative (Negative) ng/mL Urine Cocaine Scre en Negative (Negative) ng/mL U Marijuana (THC) Screen Negative (Negative) ng/mL Ethyl Alcohol (0-10) mg/dL 08/14/20 08/14/20 Range/Units 19:17 19:17 WBC 6.2 (4.0-10.0) 10^3/ uL RBC 4.36 (4.1-5.3) 10^6/u L Hgb 12.4 (11.5-15.3) g/dL Hct 37.3 (37.0-47.0) % MCV 85.6 (81-99) fL MCH 28.4 (28.0-34.0) pg MCHC 33.2 (30.0-36.0) g/dL RDW 13.0 (12.1-15.1) % Plt Count 193 (130-400) 10^3/c mm MPV 10.9 H (7.4-10.4) fL Neut % (Auto) 53.9 % Lymph % (Auto) 34.6 % [place] % (Auto) 8.2 % Eos % (Auto) 2.1 % Baso % (Auto) 1.0 % Neut # (Auto) 3.35 (1.8-7.7) 10^3/u L Lymph # (Auto) 2.2 (0.8-4.8) 10^3/u L [place] # (Auto) 0.5 (0.2-0.9) 10^3/u L Eos # (Auto) 0.1 (0.0-0.8) 10^3/u L Baso # (Auto) 0.1 (0.0-0.1) 10^3/u L Nucleated RBC % (a uto) 0 % Nucleated RBCs # 0.0 /100WBC Sodium 140 (136-145) mmol/L Potassium 4.0 (3.5-5.1) mmol/L Chloride 103 (98-107) mmol/L Carbon Dioxide 25 (22-29) mmol/L Anion Gap 16.0 (5-19) BUN 10 (6-20) mg/dL Creatinine 0.7 (0.5-0.9) mg/dL GFR Calculation 90.1 (90-130) mL/min Glucose 93 (65-115) mg/dL Calculated Osmolal ity 289 (285-295) mOsm/k g Calcium 8.9 (8.5-10.5) mg/dL Total Bilirubin 0.2 (0.15-1.2) mg/dL AST 17 (0-32) U/L ALT 11 (0-33) U/L Alkaline Phosphata se 77 (35-105) IU/L Total Protein 6.9 (6.6-8.7) g/dL Albumin 4.4 (3.5-5.2) g/dL Globulin 2.5 (1.3-4.6) g/dL HCG, Qual (Negative) Urine Color (Yellow) Urine Appearance (CLEAR) Urine pH (5-7) Ur Specific Gravit y (1.005-1.030) Urine Protein (Negative) Urine Glucose (UA) (Normal) Urine Ketones (Negative) Urine Blood (Negative) Urine Nitrate (Negative) Urine Bilirubin (Negative) Urine Urobilinogen (Negative) mg/dL Ur Leukocyte Fern ase (Negative) Urine RBC (0-2) /hpf Urine WBC (0-5) /hpf Ur Squamous Epith Cells (0-5) /hpf Ur Transition Epit h Cell /hpf Amorphous Sediment Urine Bacteria (NONE) /hpf Salicylates < 0.3 L (3-10) mg/dL Urine Opiates Scre en (Negative) ng/mL Acetaminophen < 5.0 L (10-30) ug/mL Ur Barbiturates Sc reen (Negative) ng/mL Ur Phencyclidine S crn (Negative) ng/mL Ur Amphetamines Sc reen (Negative) ng/mL U Benzodiazepines Scrn (Negative) ng/mL Urine Cocaine Scre en (Negative) ng/mL U Marijuana (THC) Screen (Negative) ng/mL Ethyl Alcohol < 10 (0-10) mg/dL Imaging Data^: CXR: Attestation: I personally reviewed and interpreted this imaging study as follows: My impression: nothing acute Radiologist's impression: FINDINGS: Gastrointestinal tract: Nonobstructive bowel pattern. No visible adynamic or reactive ileus. Bones/joints: Scoliosis. Degenerative disease and degenerative disc disease of the lumbosacral spine. Other findings: Obesity. XR/XR KUB portable [id number] IMPRESSION: Nonacute. Discharge Plan Discharge Patient Disposition: Home Clinical Impression: Borderline intellectual functioning, Urinary tract infection Condition: Stable Prescriptions: New nitrofurantoin monohyd/m-cryst [Macrobid] 100 mg capsule 100 mg PO BID 5 Days Qty: 10 RF: 0 No Action lisinopril 20 mg tablet 20 mg PO DAILY Qty: 30 RF: 0 trazodone 100 mg tablet 100 mg PO BEDTIME 30 Days Qty: 30 RF: 1 methylprednisolone [Medrol ([place])] 4 mg tablets,dose pack See Rx Instructions PO PER PKG DIR Qty: 21 RF: 0 tolnaftate [Antifungal (tolnaftate)] 1 % cream 1 applic topical BID Qty: 30 RF: 0 fluoxetine 20 mg capsule 20 mg PO DAILY 30 Days Qty: 30 RF: 1 albuterol sulfate [ProAir HFA] 90 mcg/actuation Hfa Aerosol Inhaler 2 puff INHALATION Q6H PRN (Reason: Shortness Of Breath) RF: 0 Flexeril 10 mg Tablet 10 mg PO BID PRN (Reason: Muscle Spasm) RF: 0 naproxen 500 mg Tablet 500 mg PO BID PRN (Reason: Pain) RF: 0 hydroxyzine HCl 25 mg tablet 25 mg PO Q8H PRN (Reason: anxiety) RF: 0 buspirone 15 mg tablet 15 mg PO BID RF: 0 Discharge Orders: Discharge ED (Routine); Ordered 08/14/20 Ordered By: Lauri Jaimes Discharge Diet: Usual diet Discharge Activity: Resume usual activity Patient Instructions: Opioid Safety, Urinary Tract Infection - Women Activity Restrictions/Additional Instructions: Follow-up with behavioral health and your machine tool operator as needed take Take Macrobid as prescribed for your urinary tract infection Coding Level of Care 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
--- NOTE | 2020-08-14 19:22 | PC.PHAR ---
pt states she takes care of her own medications-pt states she is unsure of the names of her medications but did bring in her medication bottles-pt states she only takes the meds she brought in-pt states she took meds today but is unsure which ones-medications entered are from the med bottles the pt brought in and what ext med history shows has been filled recently-notes are made on the pharmacy comments of each rx
[2020-08-14 19:24] LABS: Add Urine Microscopic? YES; Bilirubin Urine Neg (Negative); Blood Urine 2+ (Negative); Glucose Urine UA Norm (Normal); Ketones Urine Negative (Negative); Leukocyte Esterase Urine 2+ (Negative); Nitrate Urine Negative (Negative); Protein Urine Neg (Negative); Urine Appearance Cloudy (CLEAR); Urine Color Yellow (Yellow); Urobilinogen Urine 1 mg/dL (Negative); pH Urine 5 (5-7)
[2020-08-14 19:25] LABS: HCG Qualitative Urine. Negative (Negative)
[2020-08-14 19:26] LABS: Amphetamines Screen Urine Negative (Negative); Barbiturates Screen Urine Negative (Negative); Benzodiazepines Screen Urine Negative (Negative); Cocaine Screen Urine Negative (Negative); Opiate Screen Urine Negative (Negative); PCP Screen Urine Negative (Negative); THC Screen Urine Negative (Negative)
[2020-08-14 19:29] LABS: Add Urine Culture? No; Bacteria Urine 2+ /hpf; Squamous Epithelial Cell Urine 25-40 /hpf (0-5); Transitional Epi Cells Urine 0-4 /hpf; WBC Urine 80-100 /hpf (0-5)
[2020-08-14 19:58] LABS: Basophils # 0.1 10^3/uL (0.0-0.1); Eosinophils # 0.1 10^3/uL (0.0-0.8); Eosinophils % 2.1 %; Hematocrit 37.3 % (37.0-47.0); Hemoglobin 12.4 g/dL (11.5-15.3); Lymphocytes # 2.2 10^3/uL (0.8-4.8); Lymphocytes % 34.6 %; Mean Corpuscular HGB Conc 33.2 g/dL (30.0-36.0); Mean Corpuscular Hemoglobin 28.4 pg (28.0-34.0); Mean Corpuscular Volume 85.6 fL (81-99); Mean Platelet Volume 10.9 fL (7.4-10.4); Monocytes # 0.5 10^3/uL (0.2-0.9); Monocytes % 8.2 %; Neutrophils # 3.35 10^3/uL (1.8-7.7); Neutrophils % 53.9 %; Nucleated Red Blood Cells % 0 %; Platelet Count 193 10^3/cmm (130-400); Red Blood Count 4.36 10^6/uL (4.1-5.3); White Blood Count 6.2 10^3/uL (4.0-10.0)
[2020-08-14] MEDS: nitrofurantoin SR (BID) 100 mg Capsule PO (19:58)
[2020-08-14 20:12] LABS: Alanine Aminotransferase 11 U/L (0-33); Albumin Level 4.4 g/dL (3.5-5.2); Alkaline Phosphatase 77 IU/L (35-105); Aspartate Amino Transferase 17 U/L (0-32); Blood Urea Nitrogen 10 mg/dL (6-20); Calcium 8.9 mg/dL (8.5-10.5); Carbon Dioxide 25 mmol/L (22-29); Chloride 103 mmol/L (98-107); Globulin 2.5 g/dL (1.3-4.6); Glomerular Filtration Rate 90.1 mL/min (90-130); Glucose 93 mg/dL (65-115); Osmolality Calculated 289 mOsm/kg (285-295); Sodium 140 mmol/L (136-145); Total Bilirubin 0.2 mg/dL (0.15-1.2); Total Protein 6.9 g/dL (6.6-8.7)
[2020-08-14 20:18] LABS: Acetaminophen < 5.0 ug/mL (10-30); Alcohol Level < 10 mg/dL (0-10); Salicylate < 0.3 mg/dL (3-10)
[2020-08-14] MEDS: phenazopyridine 100 mg Tablet PO (20:23)
[2020-08-15 00:48] VITALS: BP 156/94; PULSE 98; RESP 20; O2SAT 96
== END 2020-08-14 23:12 | disposition home or self-care (01) ==
PROVIDERS: Emergency Provider Student in an Organized Health Care Education/Training Program
DX: N39.0 Urinary tract infection, site not specified (principal); R41.83 Borderline intellectual functioning; I10 Essential (primary) hypertension; F17.210 Nicotine dependence, cigarettes, uncomplicated
CPT/HCPCS: 36415; 74018; 80053; 80306; 80307; 81001; 81025; 85025; 99283